=== PATIENT | female | born 1995 | race Caucasian/White ===

== ENCOUNTER → 2023-11-29 07:53 | Outpatient (REF) | payer OTHER, SELFPAY | LOC: OHS 07:53 | PROVIDERS: ATTENDING PHYSICIAN Nurse Practitioner Family | DX: Z13.9 Encounter for screening, unspecified (principal) | CPT/HCPCS: 71046 ==

== ENCOUNTER → 2024-02-16 08:15 | Outpatient (REF) | payer BC, SELFPAY ==
[2024-02-16 12:14] LABS: Urine Albumin Trace (Neg - Trace); Urine Bilirubin Negative (Negative); Urine Character Clear (Clear); Urine Color Yellow; Urine Glucose 1+ (Negative); Urine Ketone Negative (Negative); Urine Leukocyte Negative (Negative); Urine Nitrite Negative (Negative); Urine Occult Blood Negative (Negative); Urine Urobilinogen Negative (Neg - 1+)
[2024-02-16 12:48] LABS: ALT (SGPT) 13 U/L (0-35); AST (SGOT) 17 U/L (14-36); Albumin 3.9 g/dl (3.5-5.0); Alkaline Phosphatase 71 U/L (38-126); Blood Urea Nitrogen 12 mg/dl (7-17); Calcium 9.4 mg/dl (8.4-10.2); Carbon Dioxide 24 mmol/L (22-30); Chloride 103 mmol/L (98-107); Glucose 131 mg/dl (70-99); Potassium 4.5 mmol/L (3.5-5.1); Sodium 135 mmol/L (135-145); Total Bilirubin 0.9 mg/dl (0.2-1.3); Total Protein 6.4 g/dl (6.3-8.2); eGFR > 60.00
[2024-02-16 13:43] LABS: Urine Protein < 5 mg/dl
== END ==
LOC: REG 08:15
PROVIDERS: ATTENDING PHYSICIAN Obstetrics & Gynecology; FAMILY PHYSICIAN Family Medicine
DX: Z34.91 Encounter for supervision of normal pregnancy, unspecified, first trimester (principal); E10.9 Type 1 diabetes mellitus without complications; Z34.81 Encounter for supervision of other normal pregnancy, first trimester
CPT/HCPCS: 36415; 80053; 81003; 82570; 84156; 84550; 93005

== ENCOUNTER → 2024-02-28 11:05 | Outpatient (REF) | payer BC, SELFPAY | LOC: PNTC 11:05 | PROVIDERS: ATTENDING PHYSICIAN Obstetrics & Gynecology | DX: Z36.0 Encounter for antenatal screening for chromosomal anomalies (principal); Z36.82 Encounter for antenatal screening for nuchal translucency | CPT/HCPCS: 76801; 76813 ==

== ENCOUNTER → 2024-03-23 13:31 | Outpatient (REF) | payer BC, SELFPAY | LOC: PNTC 13:31 | PROVIDERS: ATTENDING PHYSICIAN Obstetrics & Gynecology | DX: O24.012 Pre-existing type 1 diabetes mellitus, in pregnancy, second trimester (principal); O30.032 Twin pregnancy, monochorionic/diamniotic, second trimester; Z87.51 Personal history of pre-term labor; O30.009 Twin pregnancy, unspecified number of placenta and unspecified number of amniotic sacs, unspecified trimester | CPT/HCPCS: 76805; 76810; 76817 ==

== ENCOUNTER → 2024-04-06 08:00 | Outpatient (REF) | payer BC, SELFPAY | LOC: PNTC 08:00 | PROVIDERS: ATTENDING PHYSICIAN Obstetrics & Gynecology | DX: O24.012 Pre-existing type 1 diabetes mellitus, in pregnancy, second trimester (principal); Z87.51 Personal history of pre-term labor; O30.032 Twin pregnancy, monochorionic/diamniotic, second trimester | CPT/HCPCS: 76805; 76815; 76817; 76820; 76821 ==

== ENCOUNTER → 2024-04-20 08:54 | Outpatient (REF) | payer BC, SELFPAY | LOC: PNTC 08:54 | PROVIDERS: ATTENDING PHYSICIAN Obstetrics & Gynecology | DX: O24.012 Pre-existing type 1 diabetes mellitus, in pregnancy, second trimester (principal); Z87.51 Personal history of pre-term labor; O30.032 Twin pregnancy, monochorionic/diamniotic, second trimester | CPT/HCPCS: 76811; 76812; 76817; 76820; 76821 ==

== ENCOUNTER 2024-05-04 15:27 | Observation (INO) | payer BC, SELFPAY ==
[2024-05-04 15:52] VITALS: BP 128/80; BMI 34.4
[2024-05-04 15:55] LABS: % Basophils 0.3 % (0-2); % Eosinophils 0.6 % (0-6); % Immature Granulocytes 0.3 % (0-0.5); % Lymphocytes 23.7 % (20.5-51.1); % Monocytes 4.3 % (1.7-9.3); % Neutrophils 70.8 % (42.2-75.2); Absolute Eosinophils 0.1 10^3/uL (0-0.7); Absolute Lymphocytes 2.1 10^3/uL (1.2-3.4); Absolute Monocytes 0.4 10^3/uL (0.1-0.6); Absolute Neutrophils 6.4 10^3/uL (1.4-6.5); Hematocrit 36.3 % (37.0-47.0); Hemoglobin 12.9 g/dL (12.0-16.0); Mean Corp Hgb Conc. 35.5 g/dL (33.0-37.0); Mean Corpuscular Hgb 27.4 pg (27.0-31.0); Mean Corpuscular Volume 77.1 fL (81.0-99.0); Mean Platelet Volume 10.4 fL (7.4-10.4); Nucleated Red Blood Cells % 0 %; Platelet Count 272 10^3/uL (130-400); Red Blood Cell Count 4.71 10^6/uL (4.20-5.40); Red Cell Dist. Width 12.9 % (11.5-14.5)
[2024-05-04] MEDS: NSS 1000 IV (16:00)
[2024-05-04 16:13] LABS: ALT (SGPT) 17 U/L (0-35); AST (SGOT) 22 U/L (14-36); Albumin 3.7 g/dl (3.5-5.0); Alkaline Phosphatase 100 U/L (38-126); Blood Urea Nitrogen 14 mg/dl (7-17); Calcium 9.4 mg/dl (8.4-10.2); Carbon Dioxide 18 mmol/L (22-30); Chloride 102 mmol/L (98-107); Estimated Creatinine Clearance > 125 ml/min; Glucose 238 mg/dl (70-99); Potassium 4.3 mmol/L (3.5-5.1); Sodium 135 mmol/L (135-145); Total Bilirubin 0.8 mg/dl (0.2-1.3); Total Protein 6.6 g/dl (6.3-8.2); eGFR > 60.00
[2024-05-04] MEDS: AMPICILLIN 108 MG IV (16:37)
[2024-05-04] MEDS: ZITHROMAX 1000 MG PO (17:04)
== END 2024-05-04 19:00 | disposition short-term general hospital (02) ==
LOC: LDRP 15:27
PROVIDERS: ADMITTING PHYSICIAN Student in an Organized Health Care Education/Training Program
DX: O42.912 Preterm premature rupture of membranes, unspecified as to length of time between rupture and onset of labor, second trimester (principal); O31.8X21 Other complications specific to multiple gestation, second trimester, fetus 1; O30.032 Twin pregnancy, monochorionic/diamniotic, second trimester; Z3A.22 22 weeks gestation of pregnancy; Z88.8 Allergy status to other drugs, medicaments and biological substances; O24.012 Pre-existing type 1 diabetes mellitus, in pregnancy, second trimester; Z96.41 Presence of insulin pump (external) (internal); Z79.4 Long term (current) use of insulin
CPT/HCPCS: 76815; 76817; 76820; 76821; 80053; 85025; 86850; 86900; 86901; G0378

== ENCOUNTER → 2024-06-15 07:18 | Outpatient (REF) | payer BC, SELFPAY ==
[2024-06-15 08:50] LABS: TSH Reflex To Free T4 0.74 uIU/ml (0.47-4.68)
== END ==
LOC: REG 07:18
PROVIDERS: ATTENDING PHYSICIAN Student in an Organized Health Care Education/Training Program; FAMILY PHYSICIAN Family Medicine
DX: O92.79 Other disorders of lactation (principal)
CPT/HCPCS: 36415; 84443

== ENCOUNTER → 2025-03-16 02:40 | Outpatient (REF) | payer BC, SELFPAY ==
[2025-03-16 19:23] LABS: Beta HCG Quantitative 52732.00 mIU/ml
== END ==
LOC: CLAB 02:40
PROVIDERS: ATTENDING PHYSICIAN Nurse Practitioner Family
DX: Z32.01 Encounter for pregnancy test, result positive (principal)
CPT/HCPCS: 84702

== ENCOUNTER → 2025-03-22 08:28 | Outpatient (REF) | payer BC, SELFPAY ==
[2025-03-28 05:56] LABS: HPV, High Risk Not Detected; HPV, High Risk Source Cervical
== END ==
LOC: CPAP 08:28
PROVIDERS: ATTENDING PHYSICIAN Obstetrics & Gynecology
DX: Z34.90 Encounter for supervision of normal pregnancy, unspecified, unspecified trimester (principal); Z11.3 Encounter for screening for infections with a predominantly sexual mode of transmission; Z11.51 Encounter for screening for human papillomavirus (HPV)
CPT/HCPCS: 87491; 87591; 87624

== ENCOUNTER → 2025-04-03 10:49 | Outpatient (REF) | payer BC, SELFPAY ==
[2025-04-03 12:28] LABS: Hematocrit 41.0 % (37.0-47.0); Hemoglobin 13.8 g/dL (12.0-16.0); Mean Corp Hgb Conc. 33.7 g/dL (33.0-37.0); Mean Corpuscular Volume 80.6 fL (81.0-99.0); Nucleated Red Blood Cells % 0 %; Platelet Count 315 10^3/uL (130-400); Red Cell Dist. Width 11.8 % (11.5-14.5); Urine Character Clear (Clear)
[2025-04-03 12:52] LABS: ALT (SGPT) 18 U/L (0-35); AST (SGOT) 16 U/L (14-36); Albumin 4.6 g/dl (3.5-5.0); Alkaline Phosphatase 77 U/L (38-126); Blood Urea Nitrogen 16 mg/dl (7-17); Calcium 10.3 mg/dl (8.4-10.2); Carbon Dioxide 22 mmol/L (22-30); Chloride 105 mmol/L (98-107); Glucose 69 mg/dl (70-99); Potassium 3.9 mmol/L (3.5-5.1); Sodium 136 mmol/L (135-145); Total Protein 7.3 g/dl (6.3-8.2); Uric Acid 4.0 mg/dl (2.5-6.2); eGFR > 60.00
[2025-04-03 13:27] LABS: Hepatitis B Surface Antigen Negative (Negative)
[2025-04-03 13:36] LABS: Beta HCG Quantitative 33905.00 mIU/ml
[2025-04-03 13:45] LABS: Urine Squamous Cell >30 /LPF (Few)
[2025-04-03 14:15] LABS: Glycohemoglobin (HgbA1c) 9.2 % (4.0-5.6)
[2025-04-03 15:08] LABS: Hepatitis C Antibody Negative (Negative)
== END ==
LOC: REG 10:49
PROVIDERS: ATTENDING PHYSICIAN Obstetrics & Gynecology
DX: Z32.01 Encounter for pregnancy test, result positive (principal)
CPT/HCPCS: 36415; 80053; 81003; 81015; 82570; 83036; 84156; 84550; 84702; 85025; 86704; 86706; 86762; 86803; 86850; 86900; 86901; 87086; 87340; 87389

== ENCOUNTER → 2025-04-19 14:52 | Outpatient (REF) | payer BC, SELFPAY | LOC: PNTC 14:52 | PROVIDERS: ATTENDING PHYSICIAN Obstetrics & Gynecology | DX: Z36.0 Encounter for antenatal screening for chromosomal anomalies (principal); Z36.82 Encounter for antenatal screening for nuchal translucency | CPT/HCPCS: 36415; 81420 ==

== ENCOUNTER → 2025-05-16 07:00 | Outpatient (REF) | payer BC, SELFPAY | LOC: PNTC 07:00 | PROVIDERS: ATTENDING PHYSICIAN Obstetrics & Gynecology | DX: O60.10X0 Preterm labor with preterm delivery, unspecified trimester, not applicable or unspecified (principal) | CPT/HCPCS: 76805; 76817 ==

== ENCOUNTER → 2025-06-14 13:15 | Outpatient (REF) | payer BC, SELFPAY | LOC: PNTC 13:15 | PROVIDERS: ATTENDING PHYSICIAN Obstetrics & Gynecology | DX: Z87.59 Personal history of other complications of pregnancy, childbirth and the puerperium (principal); O99.212 Obesity complicating pregnancy, second trimester; O24.012 Pre-existing type 1 diabetes mellitus, in pregnancy, second trimester; Z87.51 Personal history of pre-term labor; Z36.86 Encounter for antenatal screening for cervical length; Z36.3 Encounter for antenatal screening for malformations | CPT/HCPCS: 76811; 76817 ==

== ENCOUNTER → 2025-07-04 06:57 | Outpatient (REF) | payer BC, SELFPAY | LOC: PNTC 06:57 | PROVIDERS: ATTENDING PHYSICIAN Obstetrics & Gynecology | DX: Z36.86 Encounter for antenatal screening for cervical length (principal); Z87.51 Personal history of pre-term labor; Z87.59 Personal history of other complications of pregnancy, childbirth and the puerperium | CPT/HCPCS: 76815; 76817 ==

== ENCOUNTER → 2025-07-17 07:07 | Outpatient (REF) | payer BC, SELFPAY | LOC: PNTC 07:07 | PROVIDERS: ATTENDING PHYSICIAN Obstetrics & Gynecology | DX: E66.9 Obesity, unspecified (principal); O24.013 Pre-existing type 1 diabetes mellitus, in pregnancy, third trimester; Z87.59 Personal history of other complications of pregnancy, childbirth and the puerperium; O99.213 Obesity complicating pregnancy, third trimester | CPT/HCPCS: 76816 ==

== ENCOUNTER → 2025-08-13 07:06 | Outpatient (REF) | payer BC, SELFPAY | LOC: PNTC 07:06 | PROVIDERS: ATTENDING PHYSICIAN Obstetrics & Gynecology | DX: O99.213 Obesity complicating pregnancy, third trimester (principal); E66.3 Overweight; O24.013 Pre-existing type 1 diabetes mellitus, in pregnancy, third trimester; Z87.59 Personal history of other complications of pregnancy, childbirth and the puerperium | CPT/HCPCS: 76816 ==